=== PATIENT | male | born 1985 | race Caucasian/White ===

== ENCOUNTER 2021-07-21 10:45 | Inpatient (IN) | payer BC ==
[~2021-07-21] VITALS: Ht 182.9 cm; Wt 93.0 kg
--- NOTE | 2021-07-21 10:50 | NUR ---
Patient ambulatory accompanied by , complaints of mild headache, superficial laceration on bridge of the nose, no active bleeding noted. Per pt he was on a flight from [place], he got dizzy and loss his consciousness in the restroom today. Denies SOB,nausea,vomiting,abdominal pain. recent vitals of BP-154/106 KY-151 RR-20 T-97.8 SPO2-98% RA.
--- NOTE | 2021-07-21 10:55 | NUR ---
Dr. Keith at bedside for MSE.
--- NOTE | 2021-07-21 11:00 | NUR ---
Per order, pts laceration on bridge of nose irrigated and MD applied dermabond.
[2021-07-21] MEDS ORDERED: DILTIAZEM HCL 25 MG IV ONE ×2 (11:10→11:55)
[2021-07-21] MEDS ORDERED: IV NORMAL SALINE 1000 ML BAG IV ONE (11:15)
[2021-07-21] MEDS ORDERED: DILTIAZEM HCL 25 MG IV IV ONE ×2 (11:15→12:00)
[2021-07-21 11:25] LABS: CARBON DIOXIDE 28 mmol/L (21-32); CHLORIDE 103 mmol/L (98-107); CREATININE 1.2 mg/dL (0.6-1.3); GLUCOSE 158 mg/dL (74-106); POTASSIUM 4.1 mmol/L (3.5-5.1); UREA NITROGEN, BLOOD 10 mg/dL (7-18)
[2021-07-21 11:28] LABS: ETHANOL < 3 MG/DL (0-0)
--- NOTE | 2021-07-21 11:30 | NUR ---
Pt back from CT, NAD noted.
[2021-07-21 11:34] LABS: HEMATOCRIT 47.3 % (36.7-47.1); MEAN CORPUSCULAR VOLUME 88.1 fL (73.0-96.2); PLATELET COUNT (AUTO) 297 K/uL (152-348)
[2021-07-21 11:36] LABS: ALANINE AMINOTRANSFERASE 40 U/L (16-63); ALKALINE PHOSPHATASE 68 U/L (50-136); ASPARTATE AMINOTRANSFERASE 17 U/L (15-37); BILIRUBIN,DIRECT 0.1 mg/dL (0.0-0.2); BILIRUBIN,TOTAL 0.4 mg/dL (0.2-1.0); TOTAL PROTEIN, SERUM 7.8 g/dL (6.4-8.2)
[2021-07-21] MEDS ORDERED: ASPIRIN 81 MG TAB.CHEW ONE (11:54)
[2021-07-21] MEDS ORDERED: ENOXAPARIN SODIUM 100 MG/ML DISP.SYRIN SQ ONE (11:55)
[2021-07-21] MEDS ORDERED: AMIODARONE HCL IV 150 MG in IV DEXTROSE 5% 100 ML IV ONE (12:00)
[2021-07-21] MEDS ORDERED: ENOXAPARIN SODIUM 80 MG/0.8 ML DISP.SYRIN SQ ONE (12:00)
[2021-07-21] MEDS ORDERED: ASPIRIN 81 MG TAB.CHEW PO ONE (12:00)
[2021-07-21 12:29] LABS: *AMPHETAMINE, URINE NEGATIVE (NEGATIVE); *CANNABINOID, URINE NEGATIVE (NEGATIVE); *COCCAINE, URINE NEGATIVE (NEGATIVE); *OPIATE, URINE NEGATIVE (NEGATIVE); *PHENCYCLIDINE SCREEN,URINE NEGATIVE (NEGATIVE)
[2021-07-21] MEDS ORDERED: AMIODARONE HCL IV 450 MG in IV DEXTROSE 5% 250 ML IV PRN (12:45)
--- NOTE | 2021-07-21 13:00 | NUR ---
There are no [facility] beds available at this time. Pt is on Amiodarone drip, remains on cont residential monitor with NAD noted at this time. Plan of care discussed with pt/family by and nursing staff.
--- NOTE | 2021-07-21 16:01 | NUR ---
Report given to yocasta, pt will be in [facility] room 318
--- NOTE | 2021-07-21 16:21 | NUR ---
Patient transferred via stretcher, pt awake, alert and orientedx4. Vitals as follows; BP- 132/93 [place]-82 RR-18 T-97.3 SPO2-96% RA. No compliants of pain/discomfort at this time.
--- NOTE | 2021-07-21 16:30 | NUR ---
received from ER per nikolay, awake alert and oriented x 4, accompanied by [employer] and , placed on tele- afib in the 90's, vs taken, oriented to bed buttons, call light and initial assessment done. Denies of shortness of breath, no chest pain, states just feels tired and want to sleep, initiated safety measures
--- NOTE | 2021-07-21 16:35 | NUR ---
pt came with amiodarone drip at 1mg/hr via iv pump on left ac iv, will continue to monitor
[2021-07-21 16:42] VITALS: BP 120/79
--- NOTE | 2021-07-21 17:35 | NUR ---
Dr Juares informed of admission
[2021-07-21] MEDS ORDERED: ACETAMINOPHEN 325 MG TABLET PO PRN (18:15)
[2021-07-21] MEDS ORDERED: ONDANSETRON 4 MG/2 ML VIAL IV PRN (18:15)
[2021-07-21] MEDS ORDERED: MORPHINE SULFATE 2 MG/1 ML DISP.SYRIN IV PRN (18:15)
[2021-07-21] MEDS ORDERED: ZOLPIDEM 5 MG TABLET PO PRN (18:15)
--- NOTE | 2021-07-21 19:02 | NUR ---
still on afib abut controlled rate, amiodarone drip infusing aat 1 mg/hr denies of chest pain, no dyspnea, at bedside, no distress noted, all needs attended and met, call light within reach
[2021-07-21] MEDS: AMIODARONE HCL IV 450 MG in IV DEXTROSE 5% 250 ML IV PRN ×2 (19:59→23:59)
--- NOTE | 2021-07-21 20:00 | NUR ---
RECEIVED PATIENT IN BED AWAKE ALERT WITH NO S/S OF PAIN OR SOB. ON AMIODARONE DRIP PER PROTOCOL. REMAINS AFIB AT A RATE OF 90-105. CLOSELY MONITORED
[2021-07-21 20:29] VITALS: BP 130/96
[2021-07-21] MEDS ORDERED: ENOXAPARIN SODIUM 100 MG/ML DISP.SYRIN SQ SCH (21:00)
[2021-07-22 00:12] VITALS: BP 119/88
--- NOTE | 2021-07-22 00:25 | NUR ---
PATIENT CONVERTED TO SR ON THE 80"S/MIN, NO SS OF PAIN OR DISTRESS. CONTINUE AMIODARONE DRIP PER PROTOCOL
[2021-07-22 04:23] VITALS: BP 131/86
[2021-07-22] MEDS ORDERED: PANTOPRAZOLE SODIUM 40 MG TABLET.DR PO SCH (07:00)
[2021-07-22 07:30] LABS: HEMATOCRIT 44.2 % (36.7-47.1); MEAN CORPUSCULAR HEMOGLOBIN 31.3 uug (23.8-33.4); MEAN CORPUSCULAR VOLUME 88.7 fL (73.0-96.2); PLATELET COUNT (AUTO) 252 K/uL (152-348)
--- NOTE | 2021-07-22 07:30 | NUR ---
awake alert/oriented, denies of chest pain, no shortness of breath, tele sr 70's , amiodarone drip at 0.5mg/hr, explained plan of care- verbalized understanding, safety measures in place
[2021-07-22 07:51] LABS: CREATININE 1.3 mg/dL (0.6-1.3); MAGNESIUM 2.4 mg/dL (1.8-2.4); PHOSPHOROUS 3.9 mg/dL (2.5-4.9); POTASSIUM 3.7 mmol/L (3.5-5.1)
[2021-07-22 08:00] VITALS: BP 131/95
[2021-07-22 08:00] LABS: THYROID STIMULATING HORMONE 0.81 mIU/mL (0.358-3.740)
--- NOTE | 2021-07-22 08:00 | NUR ---
Dr Novak on room with orders- amiodarone drip discontinued and pt cleared for d/c on cardiac standpoint
[2021-07-22] MEDS ORDERED: POTASSIUM CHLORIDE 20 MEQ TAB.PRT.SR PO ONE (11:30)
--- NOTE | 2021-07-22 11:30 | NUR ---
Dr Juares spoke to pt and
--- NOTE | 2021-07-22 12:31 | NUR ---
echo being done in the room
[2021-07-22] MEDS ORDERED: ROSU20TA2 PO (13:03)
--- NOTE | 2021-07-22 13:15 | NUR ---
pt going home- discharge instructions given-verbalized understanding, saline lock removed -no swelling/redness noted on site, ID bracelet removed, escorted to car in stable condition under 's care, all belongings with him
[2021-07-22] MEDS ORDERED: ATORVASTATIN 20 MG TABLET PO SCH (21:00)
== END 2021-07-22 13:50 | disposition home or self-care (01) | DRG 310 ==
LOC: ER 10:48 → TELE3 16:11 → TELE-TD3 16:56
PROVIDERS: ADMIT Internal Medicine; ATTEND Internal Medicine
DX: I48.91 Unspecified atrial fibrillation (principal); S02.2XXA Fracture of nasal bones, initial encounter for closed fracture; R77.8 Other specified abnormalities of plasma proteins; R73.9 Hyperglycemia, unspecified; D72.828 Other elevated white blood cell count; W19.XXXA Unspecified fall, initial encounter; Y93.89 Activity, other specified; Y92.89 Other specified places as the place of occurrence of the external cause; R55 Syncope and collapse; Z20.822 Contact with and (suspected) exposure to COVID-19; E78.1 Pure hyperglyceridemia; Z72.89 Other problems related to lifestyle
CPT/HCPCS: 36415; 70450; 70486; 71045; 83735; 84100; 84443; 84484; 85025; 93005; 93307; A4663; G0378; G0480; J0282; J1650; J3490; J7040; J7050